=== PATIENT | male | born 1960 | race Caucasian/White ===

== ENCOUNTER → 2019-12-02 10:49 | Outpatient (CLI) | payer OTHER, SELFPAY ==
--- NOTE | ~2019-12-02 | XR_ITS ---
XR chest 2V DATE: 12/02/2019 10:59 INDICATION: Acute lower respiratory infection TECHNIQUE: 2 views COMPARISON: None FINDINGS: Normal heart size. No hilar or mediastinal enlargement. No pulmonary infiltrate or consolid ation, pleural effusion or pulmonary vascular congestion or pneumothorax. IMPRESSION: No active cardiopulmonary disease Reviewed, dictated and finalized at location A.
== END ==
PROVIDERS: PCP Family Medicine; Visit Provider Family Medicine
DX: J22 Unspecified acute lower respiratory infection (principal)
CPT/HCPCS: 71046

== ENCOUNTER → 2019-12-04 07:52 | Outpatient (CLI) | payer OTHER, SELFPAY ==
--- NOTE | ~2019-12-04 | US_ITS ---
EXAMINATION: US abdomen limited DATE: 12/04/2019 08:28 INDICATION: Abnormal levels of other serum enzymes TECHNIQUE: Multiple grayscale and Doppler ultrasound images of the abdomen were obtained. COMPARISON: None FINDINGS: The abdominal aorta is normal in caliber. The visualized portions of the head, body, and ta il of the pancreas are normal. There is diffuse hepatic steatosis. No liver surface nodularity. There is normal flow in main portal vein. The gallbladder is normal in size. No gallstones or gallbladder wall thickening. There was no sonographic Christopher sign. The common duct is normal and measures 4 mm. IMPRESSION: 1. Diffuse hepatic steatosis. Reviewed, dictated and finalized at location A.
== END ==
PROVIDERS: PCP Family Medicine; Visit Provider Family Medicine
DX: R74.8 Abnormal levels of other serum enzymes (principal); K76.0 Fatty (change of) liver, not elsewhere classified
CPT/HCPCS: 76705

== ENCOUNTER 2020-12-06 14:50 | Outpatient (CLI) | payer OTHER, SELFPAY | END 2020-12-06 14:51 | disposition home or self-care (01) | LOC: ANHCOVIDVC 14:50 | PROVIDERS: PCP Family Medicine | DX: Z23 Encounter for immunization (principal) | CPT/HCPCS: 0001A; 91300 ==

== ENCOUNTER 2020-12-27 14:48 | Outpatient (CLI) | payer OTHER, SELFPAY | END 2020-12-27 14:49 | disposition home or self-care (01) | LOC: ANHCOVIDVC 14:48 | PROVIDERS: PCP Family Medicine | DX: Z23 Encounter for immunization (principal) | CPT/HCPCS: 0002A; 91300 ==

== ENCOUNTER 2021-11-03 02:51 | Day surgery (SDC) | payer OTHER, SELFPAY ==
[2021-10-20 14:37] VITALS: BMI 32.8
--- NOTE | 2021-11-02 10:00 | WPDANESEPPF ---
Anes - Initial Pre Proc Eval Procedure: Operation Date: 11/03/21 10:30 Proposed Procedures p Screening Colonoscopy - Moustapha Smyth MD Date/Time: 11/02/21 10:00 Surgeon: Moustapha Smyth MD Pre Op Diagnosis: family hx colon ca, hx of colon polyps, neoplasm Patient Data Age: 61 Gender: M Height: 1.73 m Weight: 98 kg Allergies Allergy/AdvReac Type Severity Reaction Status Date / Time No Known Allergies Allergy Verified 11/03/21 09:21 Home Medications Medication Instructions Recorded Confirmed Type zolpidem 10 mg tablet 10 mg PO .HS PRN #30 tablet 09/12/20 11/03/21 Rx simvastatin 20 mg tablet 20 mg PO DAILY #90 tablet 03/10/21 11/03/21 Rx desvenlafaxine succinate 50 mg 50 mg PO DAILY #90 tablet 05/15/21 11/03/21 Rx tablet,extended release 24 hr metoprolol succinate 100 mg 100 mg PO DAILY #30 tablet 08/11/21 11/03/21 Rx tablet,extended release 24 hr Patient hx anesthesia problems: none Family hx anesthesia problems: none Results Review: All pre-operative results and documents have been reviewed as part of the pre-operative evaluation. [facility] Past Medical History Medical History Bullous pemphigoid Essential (primary) hypertension FH: colon cancer Hyperlipidemia, unspecified Male erectile dysfunction, unspecified Vitamin D deficiency Family History Family History Other Carcinoma of colon Hypertension Social History Social History Smoking packs per day: 1 Smoking cigarettes per day: 20.0 Years smoked: 18 Smoking pack-years: 18.00 Smoking status: Never smoker Smoking end date: 09/23/17 Alcohol intake: current Drinks per week: 20 Alcohol use details: hard liquor/mixed drinks; approx 18 per night Substance use: current Substance use type: marijuana Other substance usage details: edibles Living arrangements: with family Spiritual care concerns: No Anes - Eval Final PreProcedure Day of Procedure 11/02/21 10:00 Patient weight: obese Heart: regular rate and rhythm Lungs: clear to auscultation and normal air movement Airway: Mallampati scale class II Neurological: alert and oriented Last oral intake: >/= 8 hours ASA classification: III Emergent: no Anesthetic plan: proceed Anesthesia type and monitoring: general GIVS and standard monitoring Results Review: All pre-operative results and documents have been reviewed as part of the pre-operative evaluation. Informed Consent: The patient's anesthetic plan and its attendant risks and benefits were discussed with the patient/family/POA. Questions were solicited and answers provided to the satisfaction of the patient/family/POA.
[2021-11-03 09:20] VITALS: BP 186/106; PULSE 95; RESP 18; TEMP 36.4; O2SAT 98; BMI 33.2
--- NOTE | 2021-11-03 09:23 | P.CONGI_ITS ---
Assessment and Plan Assessment and plan (1) H/O adenomatous polyp of colon: Code(s): Z86.010 - Personal history of colonic polyps Status: Acute Assessment and Plan: Patient has a personal history of colon polyps removed from the colon most recently 2014. Plan is for surveillance colonoscopy now and at approximately every 5 years in the future. (2) FH: colon cancer: Code(s): Z80.0 - Family history of malignant neoplasm of digestive organs Status: Acute Assessment and Plan: Family history is significant patient's mother had colon cancer. For this reason patient should continue to surveillance colonoscopies at 5 year intervals. GI Consult Note Consult date/time: 11/03/21 09:23 HPI: Khanh Garcia is a 61 year old male Presents for screening colonoscopy. Patient has a prior history of colon polyps. Most recently 2014. Additionally his family history is significant that his mother had colon cancer. Patient reports that his current weight appetite bowel movements are normal. His family history is noncontributory. He denies abdominal pain. He has had no bleeding. Review of Systems Review of Systems: All systems reviewed & are unremarkable except as noted in HPI and below PMFSH Past Medical History Medical History Bullous pemphigoid Essential (primary) hypertension FH: colon cancer Hyperlipidemia, unspecified Male erectile dysfunction, unspecified Vitamin D deficiency Family History Family History Other Carcinoma of colon Hypertension Social History Social History Smoking packs per day: 1 Smoking cigarettes per day: 20.0 Years smoked: 18 Smoking pack-years: 18.00 Smoking status: Never smoker Smoking end date: 09/23/17 Alcohol intake: current Drinks per week: 20 Alcohol use details: hard liquor/mixed drinks; approx 18 per night Substance use: current Substance use type: marijuana Other substance usage details: edibles Living arrangements: with family Spiritual care concerns: No Meds Home Medications and Allergies Home Medications Medication Instructions Recorded Confirmed Type zolpidem 10 mg tablet 10 mg PO .HS PRN #30 tablet 09/12/20 11/03/21 Rx simvastatin 20 mg tablet 20 mg PO DAILY #90 tablet 03/10/21 11/03/21 Rx desvenlafaxine succinate 50 mg 50 mg PO DAILY #90 tablet 05/15/21 11/03/21 Rx tablet,extended release 24 hr metoprolol succinate 100 mg 100 mg PO DAILY #30 tablet 08/11/21 11/03/21 Rx tablet,extended release 24 hr Allergies Allergy/AdvReac Type Severity Reaction Status Date / Time No Known Allergies Allergy Verified 11/03/21 09:21 Exam Narrative: Physical exam reveals patient to be alert. Vital signs stable. HEENT exam is unremarkable. Patient is anicteric. Lungs are clear to auscultation and percussion. Heart is without murmur or extra sounds. Abdominal exam bowel sounds are present soft nontender with no organomegaly. Digital external rectal exam is normal.
[2021-11-03] MEDS: LACTATED RINGERS 1,000 ML 150 ML IV CONT (09:35)
[2021-11-03 10:15] VITALS: BP 117/73; PULSE 86; RESP 21; O2SAT 99
[2021-11-03 10:25] VITALS: BP 130/87; PULSE 84; RESP 15; O2SAT 94
[2021-11-03 10:38] VITALS: BP 150/102; PULSE 79; RESP 20; O2SAT 98
== END 2021-11-03 10:40 | disposition home or self-care (01) ==
PROVIDERS: PCP Family Medicine; Visit Provider Internal Medicine Gastroenterology
PROC: 0DJD8ZZ Inspection of Lower Intestinal Tract, Via Natural or Artificial Opening Endoscopic (ICD-10-PCS; CPT 45378; principal; 2021-11-03 10:30)
DX: Z12.11 Encounter for screening for malignant neoplasm of colon (principal); D12.2 Benign neoplasm of ascending colon; K64.8 Other hemorrhoids; K57.30 Diverticulosis of large intestine without perforation or abscess without bleeding; Z80.0 Family history of malignant neoplasm of digestive organs; L12.0 Bullous pemphigoid; I10 Essential (primary) hypertension; E78.5 Hyperlipidemia, unspecified; E55.9 Vitamin D deficiency, unspecified; Z87.891 Personal history of nicotine dependence; F12.90 Cannabis use, unspecified, uncomplicated; E66.9 Obesity, unspecified; Z68.33 Body mass index [BMI] 33.0-33.9, adult
CPT/HCPCS: 45385; 88305; J2704; J7120

== ENCOUNTER 2023-12-12 02:26 | Day surgery (SDC) | payer OTHER, SELFPAY ==
[2023-12-04 13:25] VITALS: BMI 31.9
--- NOTE | 2023-12-10 09:23 | SUR.PREOP ---
Patient called regarding upcoming procedure. Reviewed preop instructions, appointment times, and procedure prep.
[2023-12-12 07:23] VITALS: BP 158/86; PULSE 66; RESP 16; TEMP 36.5; O2SAT 97
[2023-12-12] MEDS: LACTATED RINGERS 1,000 ML 150 ML IV CONT (07:31)
--- NOTE | 2023-12-12 07:51 | WPDANESEPPF ---
Anes - Initial Pre Proc Eval Procedure: Operation Date: 12/12/23 08:30 Proposed Procedures p Esophagogastroduodenoscopy EGD - Tenzin Ayala MD Date/Time: 12/12/23 07:51 Surgeon: Tenzin Ayala MD Pre Op Diagnosis: Nausea and Vomiting unspecified Patient Data Age: 63 Gender: M Height: 1.73 m Weight: 94.4 kg Last Vital Signs Temp 97.7 F 12/12/23 07:23 Pulse 66 12/12/23 07:23 Resp 16 12/12/23 07:23 BP 158/86 H 12/12/23 07:23 Pulse Ox 97 12/12/23 07:23 O2 Del Method Room Air 12/12/23 07:23 Allergies Allergy/AdvReac Type Severity Reaction Status Date / Time No Known Allergies Allergy Verified 12/12/23 07:22 Home Medications Medication Instructions Recorded Confirmed Type zolpidem 10 mg tablet (Ambien) 10 mg PO .HS PRN insomnia #30 tabs 02/21/22 12/04/23 Rx simvastatin 20 mg tablet 20 mg PO DAILY #90 tabs 05/28/23 12/04/23 Rx desvenlafaxine succinate 50 mg See Rx Instructions .Route 07/21/23 12/04/23 Rx tablet,extended release 24 hr .COMPLEX #90 tabs metoprolol succinate 50 mg 150 mg PO DAILY #90 tabs 09/24/23 12/12/23 Rx tablet,extended release 24 hr pantoprazole 40 mg tablet,delayed See Rx Instructions .Route 10/17/23 12/04/23 Rx release .COMPLEX #90 tabs cholecalciferol (vitamin D3) 25 25 mcg PO DAILY 12/04/23 12/04/23 History mcg (1,000 unit) tablet (Vitamin D3) Patient hx anesthesia problems: none Family hx anesthesia problems: none Results Review: All pre-operative results and documents have been reviewed as part of the pre-operative evaluation. [facility] Past Medical History Medical History (Updated 10/23/23 @ 11:41 by Brenda Shepard APRN) Bullous pemphigoid Essential (primary) hypertension FH: colon cancer Hyperlipidemia, unspecified Male erectile dysfunction, unspecified Nausea and vomiting Obesity (BMI 30.0-34.9) Vitamin D deficiency Surgical History Surgical History H/O umbilical hernia repair Family History Family History Other Carcinoma of colon Hypertension Social History Social History Smoking packs per day: 1 Smoking cigarettes per day: 20.0 Years smoked: 20 Smoking pack-years: 20.00 Smoking status: Former smoker Tobacco type: cigarettes Smoking end date: 09/23/17 Alcohol intake: current Drinks per week: 8 Alcohol use details: DRINKS Substance use: never Substance use type: does not use Other substance usage details: edibles Lack of Transportation: No Lack of Food: Never True Current Housing: I Have Housing Concerned About Future Housing: No Difficulty Paying Gas/Electric Bills: No Difficulty Paying for Meds: No Currently Unemployed: No Education: Master's Degree or Higher Difficulty w/ Childcare or Family Care: No Living arrangements: with family Spiritual care concerns: No Anes - Eval Final PreProcedure Day of Procedure 12/12/23 07:51 Patient weight: obese Heart: regular rate and rhythm Lungs: clear to auscultation Airway: Mallampati scale class III Neurological: alert and oriented Last oral intake: >/= 8 hours ASA classification: III Emergent: no Anesthetic plan: proceed Anesthesia type and monitoring: general GIVS and standard monitoring Results Review: All pre-operative results and documents have been reviewed as part of the pre-operative evaluation. Informed Consent: The patient's anesthetic plan and its attendant risks and benefits were discussed with the patient/family/POA. Questions were solicited and answers provided to the satisfaction of the patient/family/POA.
--- NOTE | 2023-12-12 08:21 | PM.HPGS ---
History of Present Illness History of Present Illness Consent: Risks, benefits, and alternatives have been discussed and questions answered. Patient agrees to proceed with procedure. Chief complaint: Nausea and Vomiting unspecified Narrative: Khanh Garcia is a 63 year old male with nausea and dry heaving for almost 1 year, never had egd. Protonix helped initially but now symptomatic. Review of Systems Review of Systems: All systems reviewed & are unremarkable except as noted in HPI and below PMFSH Past Medical History Medical History (Updated 10/23/23 @ 11:41 by Brenda Shepard, TRESSA) Bullous pemphigoid Essential (primary) hypertension FH: colon cancer Hyperlipidemia, unspecified Male erectile dysfunction, unspecified Nausea and vomiting Obesity (BMI 30.0-34.9) Vitamin D deficiency Surgical History Surgical History H/O umbilical hernia repair Family History Family History Other Carcinoma of colon Hypertension Social History Social History Smoking packs per day: 1 Smoking cigarettes per day: 20.0 Years smoked: 20 Smoking pack-years: 20.00 Smoking status: Former smoker Tobacco type: cigarettes Smoking end date: 09/23/17 Alcohol intake: current Drinks per week: 8 Alcohol use details: DRINKS Substance use: never Substance use type: does not use Other substance usage details: edibles Lack of Transportation: No Lack of Food: Never True Current Housing: I Have Housing Concerned About Future Housing: No Difficulty Paying Gas/Electric Bills: No Difficulty Paying for Meds: No Currently Unemployed: No Education: Master's Degree or Higher Difficulty w/ Childcare or Family Care: No Living arrangements: with family Spiritual care concerns: No Meds Home Medications and Allergies Home Medications Medication Instructions Recorded Confirmed Type zolpidem 10 mg tablet (Ambien) 10 mg PO .HS PRN insomnia #30 tabs 02/21/22 12/04/23 Rx simvastatin 20 mg tablet 20 mg PO DAILY #90 tabs 05/28/23 12/04/23 Rx desvenlafaxine succinate 50 mg See Rx Instructions .Route 07/21/23 12/04/23 Rx tablet,extended release 24 hr .COMPLEX #90 tabs metoprolol succinate 50 mg 150 mg PO DAILY #90 tabs 09/24/23 12/12/23 Rx tablet,extended release 24 hr pantoprazole 40 mg tablet,delayed See Rx Instructions .Route 10/17/23 12/04/23 Rx release .COMPLEX #90 tabs cholecalciferol (vitamin D3) 25 25 mcg PO DAILY 12/04/23 12/04/23 History mcg (1,000 unit) tablet (Vitamin D3) Allergies Allergy/AdvReac Type Severity Reaction Status Date / Time No Known Allergies Allergy Verified 12/12/23 07:22 Vital Signs Vital Signs - 24 hr 12/12/23 07:23 Temperature 97.7 F Pulse Rate 66 Respiratory Rate 16 Blood Pressure 158/86 H Pulse Oximetry 97 Oxygen Delivery Room Air Exam Const: General: comfortable and no acute distress HENMT: Face/Nose/Sinus: Normal nares present Eyes: General: appearance normal, both eyes and all related structures Neck: Neck: no JVD Resp: Auscultation: clear to auscultation bilaterally Cardio: Rate: regular rate Rhythm: regular rhythm GI: Inspection: non-distended GI Palp: Yes Soft to palpation Skin: General skin exam: normal color Neuro: General: gait normal Speech: normal speech Extrem: General: normal to inspection Psych: Mental Status: mental status grossly normal Assessment and Plan Assessment and plan (1) Nausea and vomiting: Code(s): R11.2 - Nausea with vomiting, unspecified Status: Acute Assessment and Plan: egd with bx
[2023-12-12 08:37] VITALS: BP 112/69; PULSE 66; RESP 23; O2SAT 95
[2023-12-12 08:47] VITALS: BP 121/76; PULSE 65; RESP 16; O2SAT 96
[2023-12-12 08:57] VITALS: BP 142/85; PULSE 64; RESP 18; O2SAT 97
== END 2023-12-12 09:00 | disposition home or self-care (01) ==
PROVIDERS: PCP Family Medicine; Visit Provider Internal Medicine Gastroenterology
PROC: 0DJ08ZZ Inspection of Upper Intestinal Tract, Via Natural or Artificial Opening Endoscopic (ICD-10-PCS; CPT 43235; principal; 2023-12-12 08:30)
DX: K29.50 Unspecified chronic gastritis without bleeding (principal); I10 Essential (primary) hypertension; E78.5 Hyperlipidemia, unspecified; E55.9 Vitamin D deficiency, unspecified; Z87.891 Personal history of nicotine dependence; E66.9 Obesity, unspecified; Z68.31 Body mass index [BMI] 31.0-31.9, adult
CPT/HCPCS: 43239; 88305; J2704; J7120

== ENCOUNTER 2023-12-27 07:40 | Outpatient (CLI) | payer OTHER, SELFPAY ==
--- NOTE | ~2023-12-27 | US_ITS ---
EXAMINATION: US abdomen complete DATE: 12/27/2023 09:15 INDICATION: Nausea and vomiting TECHNIQUE: Multiple grayscale and Doppler ultrasound images of the abdomen were obtained. COMPARISON: None FINDINGS: The uterus portion of the pancreatic body is normal. The head and tail the pancreas is obscured. Live r has normal contour, with a smooth surface. There is increased parenchymal echogenicity and coarsene d echotexture consistent with diffuse hepatic steatosis. No liver lesion identified. No intrahepatic biliary duct dilation suspected. Portal venous flow was seen in the hepatopetal, normal direction an d has normal Doppler waveform. The gallbladder is normal in appearance. There is no cholelithiasis. The common bile duct measures 5 mm, which is normal. Sonographic Christopher sign was reported as negative by the director of marketing. Abdominal aorta measures 2.9 cm AP proximally tapering to 1.1 cm in the mid aort a and 1.9 cm in the distal aorta. The inferior vena cava is normal. There is normal renal contour and echogenicity bilaterally. The right kidney measures 11.8 x 6.8 x 6.1 cm and the left 12.0 x 5.7 x 5. 0 cm. There are no focal renal lesions identified. There is no hydronephrosis. The spleen is normal measuring 11.1 cm in maximal diameter. IMPRESSION: 1. Diffuse hepatic steatosis. Otherwise normal abdominal ultrasound. Reviewed, dictated and finalized at location A.
== END 2023-12-27 07:41 | disposition home or self-care (01) ==
PROVIDERS: PCP Family Medicine; Visit Provider Internal Medicine Gastroenterology
DX: R11.2 Nausea with vomiting, unspecified (principal); K76.0 Fatty (change of) liver, not elsewhere classified
CPT/HCPCS: 76700

== ENCOUNTER 2024-04-08 08:02 | Outpatient (CLI) | payer MEDICARE, SELFPAY ==
--- NOTE | ~2024-04-08 | XR_ITS ---
3 VIEWS LUMBAR SPINE Ordering provider: Estefani Melgoza PA-C History: . S39.012A - Strain of muscle, fascia and tendon of lower b... . Comparison: None. FINDINGS: VERTEBRAL BODIES: No visible fracture or subluxation. Degenerative changes of the spine. Attempt of lumbarization of S1. DISK SPACES: Narrowing of the disc L3-4, L4-L5 and L5-S1. Facet joint disease at the level of L4-L5 a nd L5-S1. SOFT TISSUES: Aortic calcification. IMPRESSION: No acute osseous abnormality lumbar spine. Multilevel degenerative disc disease. Reviewed, dictated and finalized at location A.
== END 2024-04-08 08:03 | disposition home or self-care (01) ==
PROVIDERS: PCP Family Medicine; Visit Provider Physician Assistant Medical
DX: S39.012A Strain of muscle, fascia and tendon of lower back, initial encounter (principal); X58.XXXA Exposure to other specified factors, initial encounter; M51.36 Other intervertebral disc degeneration, lumbar region
CPT/HCPCS: 72110

== ENCOUNTER 2024-05-05 14:10 | Outpatient (CLI) | payer MEDICARE, SELFPAY ==
--- NOTE | 2024-05-05 14:15 | NEURO_ITS ---
Impression: # Non-diabetic complains of numbness of feet for rmore than 5 years. No family history of such problems or cardiac history. # Severe motor/sensory axonal neuropathy. # Abnormal needle/EMG exam. Nerve Conduction Studies Anti Sensory Summary Table Stim Site NR Peak (ms) P-T Amp (?V) Site1 Site2 Delta-P (ms) Dist (cm) Alexandr (m/s) Left Sup Fibular Anti Sensory (Ant Lat Mall) NO RESPONSE 14 cm NR 14 cm Ant Lat Mall 16.0 Right Sup Fibular Anti Sensory (Ant Lat Mall) NO RESPONSE 14 cm NR 14 cm Ant Lat Mall 16.0 Left Sural Anti Sensory (Lat Mall) NO RESPONSE Calf NR Calf Lat Mall 16.0 Right Sural Anti Sensory (Lat Mall) NO RESPONSE Calf NR Calf Lat Mall 16.0 Motor Summary Table Stim Site NR Onset (ms) O-P Amp (mV) Site1 Site2 Delta-0 (ms) Dist (cm) Alexandr (m/s) Left Peroneal Motor (Vastus Med) NO RESPONSE Ankle NR Popit Ankle 0.0 Popit NR Right Peroneal Motor (Vastus Med) Ankle 4.4 0.2 Popit Ankle 12.5 42.0 34 Popit 16.9 0.1 Left Tibial Motor (Abd Eldridge Brev) Ankle 4.3 0.1 Knee Ankle 15.5 43.0 28 Knee 19.8 0.2 Right Tibial Motor (Abd Eldridge Brev) Ankle 4.5 0.2 Knee Ankle 16.1 42.0 26 Knee 20.6 0.2 F Wave Studies NR F-Lat (ms) L-R F-Lat (ms) Left Peroneal (Mrkrs) (EDB) NO RESPONSE NR Right Peroneal (Mrkrs) (EDB) NO RESPONSE NR Left Tibial (Mrkrs) (Abd Hallucis) NO RESPONSE NR Right Tibial (Mrkrs) (Abd Hallucis) 59.88 EMG Side Muscle Nerve Root Ins Act Fibs Amp Dur Recrt Comment Right AntTibialis Dp Br Fibular L4-5 Nml Nml Nml >12ms +2 Right Gastroc Tibial S1-2 Nml Nml Nml >12ms +2 Right Fibularis Long Sup Br Fibular L5-S1 Nml Nml Nml >12ms +3 Right Flex Dig Long Tibial L5-S2 Nml Nml Nml >12ms +3 Right Ext Dig Brev Dp Br Fibular L5, S1 Nml Nml Nml >12ms +4 Right QuadratusFem QuadFemoris L4-5, S1 Nml Nml Nml >12ms +2 Left AntTibialis Dp Br Fibular L4-5 Nml Nml Nml >12ms +2 Left Gastroc Tibial S1-2 Nml Nml Nml >12ms +2 Left Fibularis Long Sup Br Fibular L5-S1 Nml Nml Nml >12ms +3 Left Flex Dig Long Tibial L5-S2 Nml Nml Nml >12ms +3 Left Ext Dig Brev Dp Br Fibular L5, S1 Nml Nml Nml >12ms +4 Left QuadratusFem QuadFemoris L4-5, S1 Nml Nml Nml >12ms +2 MTDD
== END 2024-05-05 14:11 | disposition home or self-care (01) ==
LOC: ANHNEURO 14:13
PROVIDERS: PCP Family Medicine; Visit Provider Physician Assistant Medical
DX: G62.9 Polyneuropathy, unspecified (principal)
CPT/HCPCS: 95886; 95910

== ENCOUNTER 2024-06-08 13:15 | Outpatient (RCR) | payer MEDICARE, SELFPAY ==
--- NOTE | 2024-04-30 10:45 | OPREHPOC ---
Outpatient Therapy Plan of Care This is a Multidisciplinary Plan of Care that may contain components documented by all disciplines (PT, OT, and ST.) PT Problem 1 PT Problem #1 Knowledge Deficit PT Goal 1 Goal Independent with HEP Target Visit 4 PT Problem 2 PT Problem #2 Pain PT Goal 1 Goal Patient will report no increased pain with sitting greater than 30 min Target Visit 8 PT Problem 3 PT Problem #3 Impaired Range of Motion PT Goal 1 Goal Improve maykel hip abduction to 40 degrees to reduce interior capsular restriction Target Visit 8 PT Goal 2 Goal Demonstrate -25 degrees or better in maykel hamstring restriction to reduce posterior chain restriction Target Visit 8 PT Problem 4 PT Problem #4 Impaired Range of Motion PT Goal 1 Goal Demonstrate 10+ degrees of maykel ankle dorsiflexion to achieve terminals stance of gait Target Visit 8
--- NOTE | 2024-04-30 10:45 | PTOPEVAL1 ---
Assessment and note entered by Mu Flores, PT Evaluation Information Assessment Status Evaluation Diagnosis Lumbar Spondylosis ICD-10 Condition Codes (PT) Pain in low back M54.50 Onset March 2024 Subjective Information Reports that in 2018 he started 2 new drugs and had an issue called Bolus Pimpozoid. The balls of his feet and toes are numb as a side effect of this. Because of this he has been walking with his knees slightly bent causing a lot of fatigue. Report that pain is worse when sitting for a long time. He stands to give himself a break from sitting. He has been wearing a back brace and using a pool noodle lumbar support. Recently had a trip to [place] in which he had a lot of fatigue in his legs. Reported Pain Level Pain Score 3: Self Report Assessment PT Clinical Summary Patient presents with signs and symptoms consistent with possible lumbar stenosis and sciatica. Poor posterior chain mobilization and hip mobility. Will benefit from skilled therapy to address posterior chain mobility, ankle mobility, and core strengthening. Plan of Care Interventions Electrical Stimulation,Gait Training,Manual Therapy,Neuro Re-education,Therapeutic Activities, Therapeutic Exercise PT Services Indicated Yes Treatment Frequency and 1-2x/week for 8 visits Duration These treatments will address the objective and functional deficits as defined above. The patient will be advanced safely and appropriately in order for the patient to progress towards his/her prior level of function. Additional exercises will be introduced and as well as a comprehensive home exercise program upon discharge, if needed, ?to ensure carryover of functional gains achieved in the clinic. This treatment plan has been reviewed and agreement upon by the patient.
--- NOTE | 2024-06-08 13:55 | PTOPDC ---
Assessment and note entered by Mu Flores, PT Evaluation Information Assessment Status Discharge Diagnosis Lumbar Spondylosis ICD-10 Condition Codes (PT) Pain in low back M54.50 Onset March 2024 Subjective Information Reports that back is doing much better. Still having trouble with the neuropathy, but he has seen improvement in radicular leg and back pain. Only pain he still has is in the anterior right hip when he goes up stairs. Reported Pain Level Pain Score 0: Self Report Assessment PT Clinical Summary Patient met all goals for therapy and is suitable [facility]. Reviewed HEP and patient is comfortable moving forward with independence. Plan of Care PT Services Indicated Yes
== END 2024-06-09 08:45 | disposition home or self-care (01) ==
LOC: ANHPT 13:15
PROVIDERS: PCP Family Medicine; Visit Provider Physician Assistant Medical
DX: M43.06 Spondylolysis, lumbar region (principal)
CPT/HCPCS: 97110; 97116; 97161; 97530

== ENCOUNTER 2024-07-28 06:19 | Emergency (ER) | payer MEDICARE, SELFPAY ==
--- NOTE | ~2024-07-28 | XR_ITS ---
Left ankle Technique: AP, oblique, and lateral views were obtained. Clinical History: Pain Findings: There is acute, oblique fracture of the distal fibula, and just proximal to the ankle morti se, minimally displaced.. Ankle mortise and other visualized joint spaces are preserved. Plantar calc aneal spur noted. Soft tissues are otherwise unremarkable. Impression: Acute, oblique fracture of the distal fibula, as detailed above. Plantar calcaneal spur. Reviewed, dictated and finalized at location M. ELING REPRESENTATIVE Impression: Acute, oblique fracture of the distal fibula, as detailed above. Plantar calcaneal spur.
[2024-07-28 06:25] VITALS: BP 163/78; PULSE 80; RESP 16; TEMP 36.7; O2SAT 100
--- NOTE | 2024-07-28 07:05 | ED_ITS ---
HPI - Extremity Injury (Lower) General Chief Complaint: Extremity Injury, Lower Stated Complaint: L ankle pain while intoxicated Time Seen by Provider: 07/28/24 06:44 History of Present Illness HPI Narrative: patient had a few drinks last night, missed a step, rolled his left ankle. No ticed was hurting this morning. Related Data Home Medications Medication Instructions Recorded Confirmed cholecalciferol (vitamin D3) 25 25 mcg PO DAILY 12/04/23 05/26/24 mcg (1,000 unit) tablet (Vitamin D3) Allergies Allergy/AdvReac Type Severity Reaction Status Date / Time No Known Allergies Allergy Verified 07/28/24 06:30 Review of Systems Review of Systems: All systems reviewed & are unremarkable except as noted in HPI and below PMFSH Past Medical History Medical History Bullous pemphigoid Essential (primary) hypertension FH: colon cancer Hyperlipidemia, unspecified Male erectile dysfunction, unspecified Nausea and vomiting Neuropathy Obesity (BMI 30.0-34.9) Vitamin D deficiency Surgical History Surgical History H/O umbilical hernia repair Family History Family History Other Carcinoma of colon Hypertension Social History Social History Smoking packs per day: 1 Smoking cigarettes per day: 20.0 Years smoked: 20 Smoking pack-years: 20.00 Smoking status: Former smoker Tobacco type: cigarettes Smoking end date: 09/23/17 Alcohol intake: current Drinks per week: 8 Alcohol use details: DRINKS Substance use: never Substance use type: does not use Other substance usage details: edibles Lack of Transportation: No Lack of Food: Never True Current Housing: I Have Housing Concerned About Future Housing: No Difficulty Paying Gas/Electric Bills: No Difficulty Paying for Meds: No Currently Unemployed: No Education: Master's Degree or Higher Difficulty w/ Childcare or Family Care: No Living arrangements: with family Spiritual care concerns: No Exam Narrative: EXAMINATION OF ORGAN SYSTEMS/BODY AREAS: Constitutional: Vital signs per nursing GENERAL:[No acute distress, non-toxic appearing.] HEAD: Normal with no signs of head trauma. EYES: EOMI, conjunctiva normal ENT: Hearing grossly intact LUNGS: Nonlabored breathing. HEART: [Regular rate and rhythm], strong DP pulse, warm foot, normal capillary refill ABD: [Soft], [nontender to palpation] EXT: Some tenderness to lateral malleolus and swelling left ankle SKIN: [No rashes or lesions.] NEURO: [Alert and oriented x 3. No gross focal sensory or strength deficits.] PSYCH: Normal affect Course Vital Signs Vital signs: Vital Signs Temperature 98.0 F 07/28/24 06:25 Pulse Rate 80 07/28/24 06:25 Respiratory Rate 16 07/28/24 06:25 Blood Pressure 163/78 H 07/28/24 06:25 Pulse Oximetry 100 07/28/24 06:25 Oxygen Delivery Room Air 07/28/24 06:25 Temperature 98.0 F 07/28/24 07:48 Pulse Rate 80 07/28/24 07:48 Respiratory Rate 18 07/28/24 07:48 Blood Pressure 170/86 H 07/28/24 07:48 Pulse Oximetry 98 07/28/24 07:48 Oxygen Delivery Room Air 07/28/24 06:25 Procedures Orthopedic Splinting/Casting Injury #1: Splinting/Casting Date: 07/28/24 Side: left Lower Extremity Injury Location: ankle Lower Extremity Immobilizer: posterior splint Splint: customized in ED OCL: short leg Pre-Procedure Neuro Vascular Exam: normal Post-Procedure Neuro Vascular Exam: normal Other Orthopedic Equipment: crutches MDM - Extremity Injury (Lower) MDM Narrative Medical decision making narrative: patient presents with left ankle pain, swelling, from rolling it last night. Neurovascularly intact on exam, x-ray unfortunately does show distal fibular fracture on my independent interpretation, is placed in a splint, see procedure note, stable for discharge with f/u to podiatry and return precautions. Discharge Plan Discharge Clinical Impression: Ankle fracture Patient Disposition: Home, Self-Care Condition: Stable Instructions: Antibiotic Form, Ankle Fracture (ED) Additional Instructions: Please keep your foot in the splints, use the crutches and try to stay off your feet, you can take ibuprofen and Tylenol for pain, follow-up with the foot/ ankle surgeon. If the splint feels too tight, you can always loosen it little bit, or come back to the ER if you have any other further issues. Prescriptions: No Action cholecalciferol (vitamin D3) [Vitamin D3] 25 mcg (1,000 unit) Tablet 25 mcg PO DAILY zolpidem [Ambien] 10 mg tablet 10 mg PO .HS PRN (Reason: insomnia) Qty: 30 1RF hydrochlorothiazide 12.5 mg tablet 6.25 mg PO QAM Qty: 90 1RF simvastatin 20 mg tablet 20 mg PO DAILY Qty: 90 2RF desvenlafaxine succinate 50 mg tablet extended release 24 hr See Rx Instructions .ROUTE .COMPLEX Qty: 90 2RF Dose Instruction: TAKE 1 TABLET BY MOUTH DAILY IN THE MORNING Rx Instructions: TAKE 1 TABLET BY MOUTH DAILY IN THE MORNING gabapentin 300 mg capsule 300 mg PO TID Qty: 90 2RF metoprolol succinate 50 mg tablet extended release 24 hr 150 mg PO DAILY Qty: 90 6RF Follow-up/Referrals: Vero Olmos MD [Primary Care Provider] - Roscoe Ruano Jr., DPM [Physician] - 2 Days
[2024-07-28] MEDS: HYDROcodone/acetaminophen (*CRX) 5-325 MG TABLET 1 TAB PO (07:37)
[2024-07-28 07:48] VITALS: BP 170/86; PULSE 80; RESP 18; TEMP 36.7; O2SAT 98
== END 2024-07-28 07:51 | disposition home or self-care (01) ==
PROVIDERS: Emergency Provider Emergency Medicine; PCP Family Medicine
DX: S82.832A Other fracture of upper and lower end of left fibula, initial encounter for closed fracture (principal); I10 Essential (primary) hypertension; E78.5 Hyperlipidemia, unspecified; E66.9 Obesity, unspecified; Z68.30 Body mass index [BMI] 30.0-30.9, adult; E55.9 Vitamin D deficiency, unspecified; G62.9 Polyneuropathy, unspecified; Z87.891 Personal history of nicotine dependence; M77.32 Calcaneal spur, left foot; X50.9XXA Other and unspecified overexertion or strenuous movements or postures, initial encounter
CPT/HCPCS: 29515; 73610; 99284; A9270

== ENCOUNTER 2024-08-10 11:08 | Outpatient (CLI) | payer MEDICARE, SELFPAY ==
--- NOTE | 2024-08-10 11:17 | ECG_ITS ---
Test Date: 2024-08-10 11:28:07 Measurements Intervals Kevil Rate: 69 P: -4 MN: 162 QRS: 4 QRSD: 73 T: -3 QT: 368 QTc: 397 Interpretive Statements SINUS RHYTHM LOW QRS VOLTAGE IN PRECORDIAL LEADS CONSIDER INFERIOR INFARCT, AGE INDETERMINATE BASELINE ARTIFACT- I, III, AVR, AVL, V5-V6 ABNORMAL ECG No previous ECG available for comparison Electronically Signed On 08-10-2024 11:43:43 INTEGRITY SPECIALIST by Jerad Moya D.O.
[2024-08-10 12:15] LABS: Anion Gap 13 mmol/L (4-12); Blood Urea Nitrogen 12 mg/dL (9-20); Calcium 10.5 mg/dL (8.4-10.2); Carbon Dioxide 25 mmol/L (22-30); Chloride 93 mmol/L (98-107); Estimated Glomerular Filt Rate > 60; Glucose 91 mg/dL (65-110); Potassium 4.8 mmol/L (3.4-5.0); Sodium 131 mmol/L (137-145)
== END 2024-08-10 11:09 | disposition home or self-care (01) ==
LOC: ANHSURGERY 11:13
PROVIDERS: Anesthesiology; PCP Family Medicine; Visit Provider Podiatrist Foot & Ankle Surgery
DX: Z01.818 Encounter for other preprocedural examination (principal); E78.5 Hyperlipidemia, unspecified; I10 Essential (primary) hypertension; Z79.899 Other long term (current) drug therapy
CPT/HCPCS: 36415; 80048; 93005

== ENCOUNTER 2024-08-14 01:07 | Day surgery (SDC) | payer MEDICARE, SELFPAY ==
[2024-08-05 14:52] VITALS: BMI 31.3
--- NOTE | 2024-08-05 15:04 | PC.NURSE ---
Report to the Outpatient Waiting Room, entrance under the green pavilion located off [facility], at time __0730am on date ___08/14/24 ____. Planned Procedure Time: _09:30am .? Time changes happen often and if your time is changed the preop area will call you the afternoon before. - You and your visitor will be asked to self-screen and do not enter if you have any COVID symptoms. Please call surgeon if you need to reschedule. - A mask is optional within the hospital at this time. Patients may have clear liquids (water, carbonated beverages, clear teas, apple juice) until 3 hours prior to surgery with a maximum of 20 ounces. - No food from midnight until time of surgery and no smoking (0630am) Take only the following medications with a SIP of water on the morning of surgery: __Metoprolol, Gabapentin, and Desvenlafaxine. DO NOT STOP ANY OF YOUR OTHER PRESCRIPTION MEDICATIONS PRIOR TO SURGERY EXCEPT THE FOLLOWING Medications to discontinue per physician Hold all vitamins and supplements 3 days prior per Anesthesia Date to take last dose 08/10/24 Please no make-up, nail english, hairspray, perfume, deodorant, or body powder the day of surgery.? No jewelry (including any body piercings) or valuables the day of surgery, leave them at home.? Please take a shower or bath the night before, or the morning of, surgery with an antibacterial soap.? Wear comfortable, loose fitting clothing.? - Jewelry must be removed prior to entering the operating room.? Rings and piercings that are not removed may be cut off. - The hospital will not accept responsibility for valuables.? - Please leave all valuables, including medications, at home the day of surgery. If you are going home after surgery, a licensed lease purchase truck driver must drive you home.? - NO public transportation without another adult if you receive anesthesia. - We recommend that an adult stay with you for 24 hours following discharge. - We also recommend that you do not drive, make important decision, drink alcoholic beverages, or take any drugs that were not prescribed by your health care provider for at least 24 hours after your discharge time. Follow any additional instructions given to you from your surgeon. Telephone instructions given to ___Patient and asked if any additional questions and then verbalized understanding. Patient advised to call surgeon office or pre surgery nurse liaison [phone] if any additional questions.
[2024-08-14] VITALS (9 sets, daily range): BP systolic 125–175; BP diastolic 70–98; PULSE 64–70; RESP 12–16; TEMP 36.3–36.7; O2SAT 96–100
--- NOTE | ~2024-08-14 | XR_ITS ---
EXAMINATION: XR surgery orthopedic DATE: 08/14/2024 11:31 INDICATION: ORIF left ankle fracture TECHNIQUE: 4 fluoroscopic images of the right ankle were obtained during procedure performed by Dr. Matthieu davis. Radiologist was not present for the imaging or procedure. The amount of fluoroscopy time use d during this procedure was 1.7 minutes. COMPARISON: None. FINDINGS: Initial image redemonstrates an oblique fracture of the lateral malleolus with few millimeter lateral displacement and corresponding lateral subluxation of the talar dome with respect to the tibia. Ther e is also corresponding widening of the medial clear space suggesting possible deltoid ligament tear. Subsequent images demonstrate reduction and internal fixation of a fracture which is fixed with an i nterfragmentary screw, lateral plate and screws and tightrope type syndesmotic fixation with pair of metallic buttons along the medial side of lucent tracts extending across the tibial and fibular metap hyseal regions. Alignment of the fixation appears near-anatomic. Joint spaces are relatively preserve d with expected small amount of intra-articular gas at the ankle joint. IMPRESSION: 1. Near-anatomic alignment post reduction internal fixation of a Jarrett type B distal fibular fracture with possible associated deltoid ligament tear. See procedure note for further detail. Reviewed, dictated and finalized at location B. FILER IMPRESSION: 1. Near-anatomic alignment post reduction internal fixation of a Jarrett type B d istal fibular fracture with possible associated deltoid ligament tear. See proc edure note for further detail.
--- NOTE | 2024-08-14 07:15 | WPDHPUPDATE1 ---
History and Physical Update Update Date/Time: 08/14/24 07:15 History and Physical has been reviewed, including an updated exam of the patient. There are NO changes in the patient's condition. Risks, benefits, and alternatives have been discussed and questions answered. Patient agrees to proceed with procedure.
[2024-08-14 08:20] LABS: Sodium 133 mmol/L (137-145)
[2024-08-14] MEDS: LACTATED RINGERS 1,000 ML 30 ML IV CONT ×2 (08:30→11:44)
--- NOTE | 2024-08-14 08:47 | WPDANESEPPF ---
Anes - Initial Pre Proc Eval Procedure: Operation Date: 08/14/24 09:30 Proposed Procedures p Open Reduction Internal Fixation Left Ankle Fracture, Repair of Syndesmosis Left Ankle - Roscoe Ruano Jr., DPM Date/Time: 08/14/24 08:47 Surgeon: Rsocoe Ruano Jr., DPM Pre Op Diagnosis: left ankle fracture, syndesmotic injury left ankle Patient Data Age: 64 Gender: M Height: 1.73 m Weight: 93.4 kg Allergies Allergy/AdvReac Type Severity Reaction Status Date / Time No Known Allergies Allergy Verified 08/14/24 08:38 Home Medications Medication Instructions Recorded Confirmed Type zolpidem 10 mg tablet (Ambien) 10 mg PO .HS PRN insomnia #30 tabs 02/21/22 08/14/24 Rx cholecalciferol (vitamin D3) 25 25 mcg PO DAILY 12/04/23 08/14/24 History mcg (1,000 unit) tablet (Vitamin D3) hydrochlorothiazide 12.5 mg tablet 6.25 mg PO QAM #90 tabs 01/22/24 08/14/24 Rx simvastatin 20 mg tablet 20 mg PO DAILY #90 tabs 03/02/24 08/14/24 Rx desvenlafaxine succinate 50 mg See Rx Instructions .Route 04/19/24 08/14/24 Rx tablet,extended release 24 hr .COMPLEX #90 tabs metoprolol succinate 50 mg 150 mg PO DAILY #90 tabs 07/06/24 08/14/24 Rx tablet,extended release 24 hr folic acid 1 mg tablet 1 mg PO DAILY #100 tabs 08/13/24 08/14/24 Rx gabapentin 300 mg capsule 300 mg PO TID #90 caps 08/13/24 08/14/24 Rx lorazepam 1 mg tablet 1 mg PO TID PRN withdrawal 08/13/24 08/14/24 Rx symptoms #30 tabs thiamine HCl (vitamin B1) 100 mg 100 mg PO DAILY #100 tabs 08/13/24 08/14/24 Rx tablet Laboratory Tests 08/14/24 08:08 Sodium 133 L mmol/L (137-145) Patient hx anesthesia problems: none Family hx anesthesia problems: none Results Review: All pre-operative results and documents have been reviewed as part of the pre-operative evaluation. [facility] Past Medical History Medical History Bullous pemphigoid Essential (primary) hypertension FH: colon cancer Hyperlipidemia, unspecified Male erectile dysfunction, unspecified Nausea and vomiting Neuropathy Obesity (BMI 30.0-34.9) Vitamin D deficiency Surgical History Surgical History H/O umbilical hernia repair Family History Family History Other Carcinoma of colon Hypertension Social History Social History (Updated 08/14/24 @ 08:48 by Moahmud Escalante MD) Smoking packs per day: 1 Smoking cigarettes per day: 20.0 Years smoked: 18 Smoking pack-years: 18.00 Smoking status: Former smoker Tobacco type: cigarettes Smoking end date: 09/23/17 Alcohol intake: current Alcohol use details: many drinks per night Substance use: never Substance use type: marijuana Other substance usage details: Gummies occasionally Lack of Transportation: No Lack of Food: Never True Current Housing: I Have Housing Concerned About Future Housing: No Difficulty Paying Gas/Electric Bills: No Difficulty Paying for Meds: No Currently Unemployed: No Education: Master's Degree or Higher Difficulty w/ Childcare or Family Care: No Living arrangements: with family Spiritual care concerns: No Anes - Eval Final PreProcedure Day of Procedure 08/14/24 08:47 Patient weight: obese Heart: regular rate and rhythm Lungs: clear to auscultation Airway: Mallampati scale class II Neurological: alert and oriented Last oral intake: >/= 8 hours ASA classification: III Emergent: no Anesthetic plan: proceed Anesthesia type and monitoring: general LMA and standard monitoring Results Review: All pre-operative results and documents have been reviewed as part of the pre-operative evaluation. Informed Consent: The patient's anesthetic plan and its attendant risks and benefits were discussed with the patient/family/POA. Questions were solicited and answers provided to the satisfaction of the patient/family/POA.
[2024-08-14] MEDS: ceFAZolin 2 GM/D5W 50 ML 2 GM/50 ML BAG IVPB (09:34)
[2024-08-14] MEDS: LIDOCAINE HCL 2% PF INJ 5 ML VIAL 10 ML INFILTRATE (10:07)
[2024-08-14] MEDS: fentaNYL CITRATE INJ (*CRX) 100 MCG/2 ML VIAL 25 MCG IV PUSH ×7 (12:00→13:26)
--- NOTE | 2024-08-14 12:03 | W.PM.PROC2 ---
Procedure Note - Detailed Date of Procedure 08/14/24 Pre-op Diagnosis 1.Distal fibular fracture left ankle fracture 2.Syndesmotic injury left ankle Post-op Diagnosis Same Procedure Performed 1. Open reduction with internal fixation of distal fibular fracture left ankle 2. Repair of syndesmosis left ankle Surgeon Roscoe Ruano Jr., DPM Anesthesia General and Local Indications Pain and swelling left ankle positive pain with squeeze test Description of Procedure Under mild sedation, the patient was brought in to the operating room, placed on the operating table in the lateral decubitus position. A pneumatic thigh tourniquet was placed about the patient's left thigh. Following general anesthesia, local anesthesia was obtained about the left leg foot utilizing 20mL of a one to one mix of 2% Lidocaine plain and 0.5% Marcaine plain just inferior and posterior to the neck of the fibula and along the medial ankle to block the saphenous nerve. The foot was then scrubbed, prepped, and draped in the usual aseptic manner. An Esmarch bandage was then used to exsanguinate the patient's left foot and ankle and the pneumatic thigh tourniquet was then inflated. An incision was made along the lateral fibula starting along the distal aspect extending approximately 10cm proximal. The incision was continued deep down through the subcutaneous tissues using sharp and blunt dissection. All bleeders were ligated and cauterized as necessary. I made a periosteal incision exposing the long spiral oblique fracture, there was some shortening and posterior displacement of the distal fibula, a bone reduction clamp was used to reduce the distal fibula bringing it out to length. I used a guide wire for a 3.5mm Arthrex headless cannulated compression screw, utilizing interfragmentary screw technique, to compress the fracture site. Next I utilized an Arthrex Anatomic 5 hole plate along with distal 3.0 mm locking screws and 3 proximal 3.5mm locking screws to fixate the neutralization plate, two 3.5 non locking screws were also used one to gain dynamic comprssion at the fracture site and the proximal most screws to approximate the proximal plate to the proximal diaphysis of the tibia. Fluoroscopy was used to make sure the fracture was adequately compressed and distal fibular fracture reduced and finally that the plate was anatomically positioned. The hook test indicated syndesmotic widening so I utilized two of the Arthrex Tightrope systems through the two distal larger 3.5mm screw hole in the 5 hole plate to reduce the syndesmotic diastasis utilizing standard principles and techniques under live fluoroscopy. Final images demonstated that the ankle mortise was congruous both medially and laterally with the increase of lateral gutter spaced now reduced compared to pre op. Next, the periosteum was reapproximated with 3-0 Vicryl and the subcutaneous structures were reapproximated and coapted utilizing 4-0 Vicryl. Next, the skin was reapproximated and coapted utilizing 4-0 Monocryl in running subcuticular suture fashion technique. Upon completion of the procedure, the incision was dressed with 1/4 inch Steri Strips, Adaptic, 4x4s, Kerlix, and Coban. The pneumatic thigh tourniquet was then deflated and a prompt hyperemic response was noted to all digits of the affected foot. The posterior splint was then applied. The patient did very well with the procedure and the anesthesia. The patient was transferred to the recovery room with vital signs stable and vascular status intact to all toes of the affected foot. Following a period of postoperative monitoring, the patient will be discharged home on the following written and oral postoperative instructions: 1. The patient should keep the dressing clean, dry, and intact. Use a cast protector bag with showers. 2. The patient will be strictly nonweightbearing with a knee scooter. 3. Patient should ice and elevate the affected foot when at rest. 4. The patient is to contact Dr. Ruano for all postop care and if any problems arise. 5. Prescriptions were written for Percocet 5/325 dispensed 40 to be taken 1 p.o. q.4-6 hours as needed for severe pain. Furthermore, Xarelto 10 mg was also prescribed to be taken starting 24 hours after surgery once daily for 14 days followed by one 325 mg aspirin to prevent DVT. Implants Arthrex 5 Hole Anatomic plate with 3.0 and 3.5 locking and cortical screws One Arthrex Headless compression screw 3.5mm Two Arthrex Tight Rope Kits Estimated Blood Loss 1 Drains No Packing No Pathology None sent Complications No immediate complications Condition Stable Disposition Same day
[2024-08-14] MEDS: oxyCODONE HCL (*CRX) 5 MG TAB IR PO (13:05)
== END 2024-08-14 13:45 | disposition home or self-care (01) ==
PROVIDERS: Anesthesiology; PCP Family Medicine; Visit Provider Podiatrist Foot & Ankle Surgery
PROC: (CPT 28485; principal; 2024-08-14 09:30)
DX: S82.822A Torus fracture of lower end of left fibula, initial encounter for closed fracture (principal); S93.432A Sprain of tibiofibular ligament of left ankle, initial encounter; W19.XXXA Unspecified fall, initial encounter; I10 Essential (primary) hypertension; E78.5 Hyperlipidemia, unspecified; E55.9 Vitamin D deficiency, unspecified; Z87.891 Personal history of nicotine dependence; F12.90 Cannabis use, unspecified, uncomplicated; E66.9 Obesity, unspecified; Z68.32 Body mass index [BMI] 32.0-32.9, adult
CPT/HCPCS: 27792; 27829; 36415; 84295; 99199; A9270; C1713; J0690; J1100; J2003; J2250; J2405; J2704; J3010; J7120

== ENCOUNTER 2024-08-17 10:35 | Outpatient (CLI) | payer MEDICARE, SELFPAY ==
--- NOTE | ~2024-08-17 | XR_ITS ---
XR ankle LT min 3V Ordering provider: Roscoe Ruano Jr., DPM History: . Ankle fracture, follow-up s/p ankle fx repair . Comparison: None. FINDINGS: BONES: Postoperative changes seen in the distal tibia and fibula. Calcaneus spur. JOINT SPACES: The ankle mortise is normal. SOFT TISSUES: Soft tissue swelling over the lateral malleolus. IMPRESSION: Postoperative changes in the distal tibia and fibula. Calcaneus spur. Reviewed, dictated and finalized at location A. AR RUNNER
== END 2024-08-17 10:36 | disposition home or self-care (01) ==
PROVIDERS: PCP Family Medicine; Visit Provider Podiatrist Foot & Ankle Surgery
DX: S82.822A Torus fracture of lower end of left fibula, initial encounter for closed fracture (principal); M77.32 Calcaneal spur, left foot; X58.XXXA Exposure to other specified factors, initial encounter
CPT/HCPCS: 73610

== ENCOUNTER 2024-10-28 08:13 | Outpatient (CLI) | payer MEDICARE, SELFPAY ==
--- NOTE | ~2024-10-28 | US_ITS ---
EXAMINATION: US right upper quadrant DATE: 10/28/2024 08:27 INDICATION: Abnormal levels of other serum enzymes. TECHNIQUE: Multiple grayscale and Doppler ultrasound images of the abdomen were obtained. COMPARISON: Ultrasound 12/27/2023 FINDINGS: The visualized portions of the head, body, and tail of the pancreas are normal. The liver i s normal without focal lesion. There is normal flow in main portal vein. The gallbladder is normal in size. No gallstones or gallbladder wall thickening. There is no sonographic Christopher's sign. The commo n duct is normal and measures 5 mm. IMPRESSION: 1. Normal right upper quadrant ultrasound. Reviewed, dictated and finalized at location A. E UP COPY CAMERA OPERATOR
== END 2024-10-28 08:14 | disposition home or self-care (01) ==
PROVIDERS: PCP Family Medicine
DX: R74.8 Abnormal levels of other serum enzymes (principal)
CPT/HCPCS: 76705

== ENCOUNTER 2024-12-09 11:00 | Outpatient (RCR) | payer MEDICARE, SELFPAY ==
--- NOTE | 2024-11-05 15:31 | OPREHPOC ---
Outpatient Therapy Plan of Care This is a Multidisciplinary Plan of Care that may contain components documented by all disciplines (PT, OT, and ST.) PT Problem 1 PT Problem #1 Knowledge Deficit PT Goal 1 Goal / Goal Update *indep with HEP Target Visit 8 PT Problem 2 PT Problem #2 Impaired Strength PT Goal 1 Goal / Goal Update increase strength of R and L ankle/foot to improve gait skill: 1* pt perform standing bilateral PF, lift heel ~ 1 off ground x 10 reps with bilateral UE support 2* in sitting, toe extension R and L ~ 50% motion Target Visit 8 PT Problem 3 PT Problem #3 Impaired Functional Mobility PT Goal 1 Goal / Goal Update improve balance and walking to decrease risk for falls: 1* Tinetti balance/gait score of 26/28 2* 5 reps sit/stand without use of UE and NO plopping into chair 3* 2 minute walking test distance of 425' Target Visit 8
--- NOTE | 2024-11-05 15:31 | PTOPEVAL1 ---
Assessment and note entered by Lila Mckee, PT Evaluation Information Assessment Status Evaluation ICD-10 Condition Codes (PT) Difficulty Walking R26.2,Abnormalities of gait and mobility R26.9,Weakness R53.1 Other ICD-10 Condition Codes ( M21.371, M 21.372 bilateral foot drop PT) Onset May 2024 Subjective Information having more falls; in the past 6 months have had 4 falls--tripping over feet; In July 2024, had ORIF L ankle due to a fall-- no PT after for his ankle; have used walking stick for balance, have not used in the past month; use compression ankle sleeve PRN; have not had PT for gait/balance/ankles in the past GOAL: get balance and walking better Reported Pain Level Pain Score Self Report Additional Pain Score Comments pain range in the past week of ankles/feet 0-4/10; neuropathy in both feet- teresa, cannot feel them, feel like toes are splaying but they are not. Assessment PT Clinical Summary Khanh has the diagnosis of bilateral foot drop, decrease gait and balance skills. He reports falls. LE functional scale rating of 64% limitation in activity level. He has a walking stick, but has not used in the past month. History includes neuropathy in both feet due to high dose of steroids were used for treatment of skin condition. In July 2024 he had L ankle ORIF due to a fall and did not have any therapy after surgery. With the evaluation: he does not have any active DF or toe extension strength of R or L LE, and decreased PF, inversion and eversion of ankle and toe flexion; Tinetti balance score of 20/28; 5 reps sit/stand without use of UE and time of 16 seconds with decreased control of descending to sitting; gait is with bilateral foot slapping. Skilled PT services are indicated for therapeutic exercises to increase bilateral ankle and foot/toe strength, gait and balance skills, to improve mobility and safety, to avoid risk for falls. Plan of Care Interventions Gait Training,Neuro Re-education,Patient/Caregiver Education,Therapeutic Activities,Therapeutic Exercise PT Services Indicated Yes Treatment Frequency and 1-2x/wk for 8 visits Duration These treatments will address the objective and functional deficits as defined above. The patient will be advanced safely and appropriately in order for the patient to progress towards his/her prior level of function. Additional exercises will be introduced and as well as a comprehensive home exercise program upon discharge, if needed, ?to ensure carryover of functional gains achieved in the clinic. This treatment plan has been reviewed and agreement upon by the patient.
--- NOTE | 2024-12-09 11:33 | PTOPDC ---
Assessment and note entered by Lila Mckee, PT Assessment Status Discharge ICD-10 Condition Codes (PT) Difficulty Walking R26.2,Abnormalities of gait and mobility R26.9,Weakness R53.1 Other ICD-10 Condition Codes ( M21.371, M 21.372 bilateral foot drop PT) Onset May 2024 Subjective Information is balancing better, can feel his toes more; is able to walk about 1/2 mile without any problems now; at home, he has a vibration plate that he stands and does squats on, have compression sock for L leg and the ankle brace, but does not wear it all the time. is going to [place], for biopsy of his foot tendon, then going to have a cadaver nerve implant. wants to stop PT at this time, continue with his HEP, then plans for surgery. Reported Pain Level Pain Score Self Report Additional Pain Score Comments pain range in the past week: 0-4/10; L ankle swollen and pain with more walking and standing Assessment PT Clinical Summary Khanh has received 8 PT sessions. Compared to the initial evaluation: pain rating is the same at 0-4/10; LE functional scale self rating from 64 to 38% limitation in activity level increase in strength of R and L toe extension, toe flexion, ankle DF motions, with trace movements now present; 2 minute walking test distance is same at 385'; gait pattern improved with step length pass other foot, but still has bilateral foot slap; Tinetti balance score improved from 20 to 24/28; education completed for HEP. The goals were partially met. Discharge PT, he is to continue with his HEP and walking/activity as tolerated. Plan of Care PT Services Indicated No
== END 2024-12-09 12:23 | disposition home or self-care (01) ==
LOC: ANHPT 11:00
PROVIDERS: PCP Family Medicine
DX: M21.371 Foot drop, right foot (principal); M21.372 Foot drop, left foot
CPT/HCPCS: 97110; 97112; 97161; 97530

== ENCOUNTER 2025-08-20 10:00 | Outpatient (RCR) | payer MEDICARE, SELFPAY ==
--- NOTE | 2025-06-25 14:54 | OPREHPOC ---
Outpatient Therapy Plan of Care This is a Multidisciplinary Plan of Care that may contain components documented by all disciplines (PT, OT, and ST.) PT Problem 1 PT Problem #1 Knowledge Deficit PT Goal 1 Goal / Goal Update *independent with HEP Target Visit 10 PT Problem 2 PT Problem #2 Impaired Strength PT Goal 1 Goal / Goal Update 1*increase strength of bilateral hips and knees to 4+/5 2* static stand without UE support x 2 minutes Target Visit 10 PT Problem 3 PT Problem #3 Impaired Functional Mobility PT Goal 1 Goal / Goal Update 1* 2 minute walking test distance 400', to improve community ambulation 2* 5 reps sit/stand without use of UEs in 18 seconds 3* pt ambulate without foot slap and use of walking stick for 2 minute walking test 4*pt report NO falls Target Visit 10
--- NOTE | 2025-06-25 14:54 | PTOPEVAL1 ---
Assessment and note entered by Lila Mckee PT Evaluation Information Assessment Status Evaluation ICD-10 Condition Codes (PT) Difficulty Walking R26.2,Abnormalities of gait and mobility R26.9,Weakness R53.1 Other ICD-10 Condition Codes ( s/p decompression of R peroneal nerve& PT) reconstruction of R sural Nerve Onset 02-03-25 Subjective Information since surgery, wearing the ankle brace and walking , not doing any ankle exercises balance and wobbly with walking, use walking stick all the time; L leg tends to give out quicker and gives out have had 3 falls since January surgery: R foot caught on carpet, on stairs; is able to pull himself up from ground with arms pulling on something the neuropathy in both feet and legs bothers him too activity: at home, able to do cooking with use of bar stool; started walking outside for fitness .4 of mile with one break to sit and rest; have been doing some of the previous therapy exercises for his legs; 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 He does not have any restrictions in activity level per surgeon. He uses a walking stick and has had several falls. LE functional scale rating of 75% limitation in activity level. He is active and is returned to some walking for fitness. He has had PT here in the past. History includes L ankle ORIF and neuropathy in both feet and lower legs. With the evaluation: decreased strength of bilateral ankles; 2 minute walking distance of 310' with walking stick and bilateral ankle medial /lateral stability braces; gait with flat foot and knee flexion in stance phase; decrease strength of hips and knees; trace strength of bilateral ankle DF, static standing without UE support is 40 seconds. Skilled PT services are indicated to increase LE strength, gait and balance skills, to improve mobility and decrease risk for falls. Education for progression of HEP and safety, with recommendations for ankle support/braces. Plan of Care Interventions Gait Training,Neuro Re-education,Patient/Caregiver Education,Therapeutic Activities,Therapeutic Exercise PT Services Indicated Yes Treatment Frequency and 1-2x/wk for 10 visits Duration These treatments will address the objective and functional deficits as defined above. The patient will be advanced safely and appropriately in order for the patient to progress towards his/her prior level of function. Additional exercises will be introduced and as well as a comprehensive home exercise program upon discharge, if needed, ?to ensure carryover of functional gains achieved in the clinic. This treatment plan has been reviewed and agreement upon by the patient.
--- NOTE | 2025-07-30 11:37 | PCPTNOTE ---
Called and cancelled sick. PER FRONT OFFICE. AKCrystal
--- NOTE | 2025-08-20 10:32 | OPREHPOC ---
Outpatient Therapy Plan of Care This is a Multidisciplinary Plan of Care that may contain components documented by all disciplines (PT, OT, and ST.) PT Problem 1 PT Problem #1 Knowledge Deficit PT Goal 1 Goal / Goal Update *independent with HEP 08-20-25 d/c goal met Target Visit 10 Progress Met PT Problem 2 PT Problem #2 Impaired Strength PT Goal 1 Goal / Goal Update 1*increase strength of bilateral hips and knees to 4+/5 2* static stand without UE support x 2 minutes 08-20-25 d/c goals not met #1 4/5 and #2 22 seconds Target Visit 10 Progress Not Met PT Problem 3 PT Problem #3 Impaired Functional Mobility PT Goal 1 Goal / Goal Update 1* 2 minute walking test distance 400', to improve community ambulation 2* 5 reps sit/stand without use of UEs in 18 seconds 3* pt ambulate without foot slap and use of walking stick for 2 minute walking test 4*pt report NO falls 08-20-25 d/c goal 3 met; #1 is 315'; #2 is partially met 18 seconds with 1 UE; #4- have had 2 falls Target Visit 10 Progress Partially Met
--- NOTE | 2025-08-20 10:32 | PTOPDC ---
Assessment and note entered by Lila Mckee, PT Assessment Status Discharge ICD-10 Condition Codes (PT) Difficulty Walking R26.2,Abnormalities of gait and mobility R26.9,Weakness R53.1 Other ICD-10 Condition Codes ( s/p deompression of R peroneal nerve& PT) reconstruction of R sural Nerve Onset 02-03-25 Subjective Information doing better with walking and balance; the new AFOs are really helping; have had 2 falls since starting therapy-about 4 weeks ago, when legs were fatigued after choir practice; use one or two walking sticks with walking and sometimes wheeled walker with fatigue; Reported Pain Level Pain Score 0: Self Report Assessment PT Clinical Summary Khanh has received a total of 10 PT sessions. With today's assessment, he reports he had a busy day yesterday and is tired this AM: compared to initial evaluation: self assessment with LE functional scale rating from 75 to 54% limitation in activity level; pain both legs, now no pain in legs; reports 2 falls since starting therapy, occurred about 4 weeks ago, when legs were fatigued; 5 reps sit/stand time with 1 UE use from 16 to 18 seconds; 2 minute walking test distance with one walking stick 310 to 315'; static standing without UE use from 40 to 22 seconds; gross strength of both hips and trunk is 4/5; with sit/stand transfer requires use of 1 UE, without use of UE has loss of balance; education completed for HEP and safety with mobility. The goals were partially met. Discharge PT. He is to continue with his HEP and increase activity/walking as tolerated. Plan of Care PT Services Indicated No
== END 2025-08-20 11:56 | disposition home or self-care (01) ==
LOC: ANHPT 10:00
PROVIDERS: PCP Family Medicine
DX: M21.371 Foot drop, right foot (principal); G60.9 Hereditary and idiopathic neuropathy, unspecified
CPT/HCPCS: 97110; 97112; 97116; 97140; 97161; 97530